=== PATIENT | female | born 1930 | race Two or more races ===

== ENCOUNTER 2020-06-20 11:56 | Inpatient (IN) | payer SELFPAY ==
[~2020-06-20] VITALS: Ht 152.4 cm; Wt 52.9 kg
--- NOTE | 2020-06-20 12:30 | NUR ---
pt rec'd to er via ems c/o abd pain for one day . hx chf,gastric ulcers AWAITING EVALUATION BY ER PROVIDER. n/v given zofran 4 mg ivp
[2020-06-20 12:42] LABS: BASOPHILS % (AUTO) 0.6 % (0.0-2.0); EOSINOPHILS % (AUTO) 0.9 % (0.0-6.0); HEMATOCRIT 34 % (33-45); HEMOGLOBIN 11.8 g/dL (11.5-14.8); LYMPHOCYTES # (AUTO) 0.8 /CMM (0.8-4.8); LYMPHOCYTES % (AUTO) 11.5 % (20.0-44.0); MEAN CORPUSCULAR HGB CONC 35 g/dl (31.0-36.0); MEAN CORPUSCULAR VOLUME 98 fL (82-100); MONOCYTES # (AUTO) 0.4 /CMM (0.1-1.30); MONOCYTES % (AUTO) 6.7 % (2.0-12.0); NEUTROPHILS # (AUTO) 5.3 /CMM (1.8-8.9); NEUTROPHILS % (AUTO) 80.3 % (43.0-81.0); PLATELET COUNT (AUTO) 250 /CMM (150-450); RED BLOOD CELL COUNT(AUTO) 3.44 MIL/uL (4.0-5.2); WHITE BLOOD COUNT (AUTO) 6.6 K/uL (4.3-11.0)
[2020-06-20 12:57] LABS: CALCIUM, SERUM 8.3 mg/dL (8.5-10.1); CARBON DIOXIDE 18 mmol/L (21-32); CHLORIDE 84 mmol/L (98-107); CREATININE 1.1 mg/dL (0.6-1.3); GLUCOSE 136 mg/dL (74-106); POTASSIUM 4.7 mmol/L (3.5-5.1); UREA NITROGEN, BLOOD 23 mg/dL (7-18)
[2020-06-20 13:02] LABS: SODIUM SERUM 116 mmol/L (136-145)
[2020-06-20 13:03] LABS: ALANINE AMINOTRANSFERASE 20 U/L (12-78); ALBUMIN 2.9 g/dL (3.4-5.0); ALKALINE PHOSPHATASE 106 U/L (46-116); ASPARTATE AMINOTRANSFERASE 29 U/L (15-37); BILIRUBIN,DIRECT 0.1 mg/dL (0.0-0.2); BILIRUBIN,TOTAL 0.5 mg/dL (0.2-1.0); LIPASE 215 U/L (73-393); TOTAL PROTEIN, SERUM 6.4 g/dL (6.4-8.2)
[2020-06-20] MEDS ORDERED: ONDANSETRON HCL/PF 4 MG/2 ML VIAL ONE (13:06)
[2020-06-20] MEDS ORDERED: PANTOPRAZOLE 40 MG VIAL ONE (13:26)
[2020-06-20] MEDS ORDERED: PANTOPRAZOLE 40 MG VIAL IV ONE (13:30)
[2020-06-20] MEDS ORDERED: ONDANSETRON HCL/PF - ER 4 MG/2 ML VIAL IV ONE (13:30)
--- NOTE | 2020-06-20 13:38 | NUR ---
pt c/o burning stomache protonix 40 mg ivp given covid 19 test done sent to lab . pt fell asleep
[2020-06-20] MEDS ORDERED: DOXA2TAB2 PO (13:55)
[2020-06-20] MEDS ORDERED: AMLO2.5T2 PO (13:55)
[2020-06-20] MEDS ORDERED: ISOS20TA8 PO (13:55)
[2020-06-20] MEDS ORDERED: METO25TA3 PO (13:55)
[2020-06-20] MEDS ORDERED: Z GUARD REMEDY 2 OZ OINT TP PRN (14:00)
[2020-06-20] MEDS ORDERED: MAGNESIUM HYDROXIDE 30 ML UDC PO PRN (14:00)
[2020-06-20] MEDS ORDERED: MAG HYDROX/AL HYDROX/SIMETH 30 ML UDC PO PRN (14:00)
[2020-06-20] MEDS ORDERED: IV NS 0.9% 500 ML IV ONE (14:00)
[2020-06-20] MEDS ORDERED: PIPERACILLIN /TAZOBACTAM 3.375 G in IV D5W 50 ML IV ONE (14:00)
[2020-06-20] MEDS ORDERED: ZOLPIDEM TARTRATE 5 MG TABLET PO PRN (14:00)
[2020-06-20] MEDS ORDERED: ONDANSETRON HCL/PF 4 MG/2 ML VIAL IVP PRN (14:00)
[2020-06-20] MEDS ORDERED: FLAGYL/NS RTU 500 MG/100 ML PIGGYBACK IV ONE (14:00)
--- NOTE | 2020-06-20 14:15 | NUR ---
COVID NEGATIVE PER LAB
--- NOTE | 2020-06-20 14:25 | NUR ---
GOT BED 110
--- NOTE | 2020-06-20 14:29 | NUR ---
pt given ua sent to lab vss small bm noted and cleaned
--- NOTE | 2020-06-20 14:34 | NUR ---
REPORT GIVEN TO CHARGE NURSE MRAYAN. AWAITING TRANSFER TO FLOOR.
[2020-06-20 14:37] LABS: BILIRUBIN,URINE NEGATIVE (NEGATIVE); COLOR,URINE YELLOW (YELLOW); LEUKOCYTE ESTERASE ,URINE NEGATIVE (NEGATIVE); NITRITE, URINE NEGATIVE (NEGATIVE); PH,URINE 5.5 (5.0-8.0); PROTEIN,URINE 100 mg/dl (NEGATIVE); UGLUCOSE NEGATIVE (NEGATIVE); UROBILINOGEN,URINE 0.2 EU/dL (0.2)
[2020-06-20 14:45] LABS: RBC,URINE 21-50 /HPF (0-2); SQUAMOUS EPITHELIAL CELL,UR 0-2 /HPF (None Seen)
[2020-06-20 14:46] LABS: BACTERIA,URINE 4+ /HPF (None Seen)
[2020-06-20] MEDS ORDERED: hydrALAZINE HCL IV 20 MG VIAL IV PRN (15:00)
--- NOTE | 2020-06-20 15:00 | NUR ---
EMERGENCY SERVICES DIRECTOR NOTES PATIENT ADMITTED FROM ER ON DX OF HYPONATREMIA. PATIENT A/O X3, POLISH SPEAKER. WAS COMPLAINING OF PAIN MID ABDOMINAL REGION PAIN 3/10 PER PAIN SCALE. VS TAKEN BP 149/65, P-90, R-20, T-98.6, O2-98 ROOM AIR. PATIENT TELE , MONITOR ON. TELE MONITOR SHOWS SR. IV ACCESS ON RIGHT AC AREA G#20. SKIN ASSESSMENT DONE INTACT. PATIENT INCONTINENT USING DIAPER. CALL LIGHT WITHIN TO REACH. ADMITTING MD AWARE OF NEW PATIENT AND MEDICATION. WILL MONITORING.
[2020-06-20 15:18] VITALS: BP 149/65
[2020-06-20] MEDS: IV NS 0.9% 1,000 ML IV PRN (15:56)
[2020-06-20] MEDS: ISOSORBIDE DINITRATE (20MG) 20 MG TABLET PO SCH (16:03)
[2020-06-20] MEDS: HYDROCODONE/APAP 5/325MG TABLET PO PRN ×2 (16:04→20:44)
--- NOTE | 2020-06-20 16:04 | NUR ---
RN NOTES ADMINISTER NARCO 5/325 MG PO PRN FOR PAIN 6/10 MID ABDOMEN, AND MAALOX 30 ML FOR STOMACHACHE. ACCORDING TELE RESIDENT SERVICES SUPERVISOR PATIENT HAS ST ELEVATION, QES- 0.14, AND BBB. NOTIFIED. ALSO APPLIED ICE PACK PER PATIENT REQUEST ON LEFT FLANK AREA. GRANDDAUGHTER NEXT TO THE BED.
[2020-06-20] MEDS: AMLODIPINE BESYLATE 2.5 MG TABLET PO SCH (16:21)
--- NOTE | 2020-06-20 18:30 | NUR ---
RN NOTES PATIENT EATING WITH ASSIST OF GRANDDAUGHTER. MEDICATION WERE ADMINISTERED FOR PAIN EFFECTIVE. ASSIST TURN AND REPOSTION Q 2 HR. CALL LIGHT WITHIN TO REACH. ENDORSED ONCOMING NURSE FOLLOW PLAN OF CARE.
--- NOTE | 2020-06-20 19:40 | NUR ---
RN OPENING NOTE RECEIVED PATIENT IN BED RESTING ALERT ORIENTED X3 VERBALLY RESPONSIVE PORTUGUESE SPEAKER ONLY, ON ROOM AIR O2:96% IV SITE IS ON RIGHT AC INTACT PATENT IV HYDRATION NS 0.9% RUNNING 100CC/HR,INCONTINENT TO BOWEL/BLADDER,SAFETY MEASURE IMPLEMENT CALL LIGHT WITHIN REACH,BED IN LOW POSITION AND LOCKED,BED ALARM IS ON CONTINUE TO MONITOR.
[2020-06-20 20:00] VITALS: BP 145/56
[2020-06-21] VITALS (7 sets, daily range): BP systolic 118–144; BP diastolic 54–81
[2020-06-21] MEDS: IV NS 0.9% 1,000 ML IV PRN ×2 (03:08→18:30)
[2020-06-21 05:52] LABS: BASOPHILS % (AUTO) 0.3 % (0.0-2.0); EOSINOPHILS % (AUTO) 2.6 % (0.0-6.0); HEMATOCRIT 32 % (33-45); HEMOGLOBIN 11.1 g/dL (11.5-14.8); LYMPHOCYTES % (AUTO) 15.7 % (20.0-44.0); MEAN CORPUSCULAR HGB CONC 35 g/dl (31.0-36.0); MEAN CORPUSCULAR VOLUME 99 fL (82-100); MONOCYTES # (AUTO) 0.5 /CMM (0.1-1.30); MONOCYTES % (AUTO) 7.7 % (2.0-12.0); NEUTROPHILS # (AUTO) 4.9 /CMM (1.8-8.9); NEUTROPHILS % (AUTO) 73.7 % (43.0-81.0); PLATELET COUNT (AUTO) 231 /CMM (150-450); RED BLOOD CELL COUNT(AUTO) 3.18 MIL/uL (4.0-5.2); WHITE BLOOD COUNT (AUTO) 6.7 K/uL (4.3-11.0)
--- NOTE | 2020-06-21 06:53 | NUR ---
RN CLOSING NOTE PATIENT REMANS ON ALERT ORIENTED X3 VERBALLY RESPONSIVE NO SOB NOT ACUTE DISTRESS NOTED ON ROOM AIR ALL DUE MEDS GIVEN MD ORDERED KEEP CLEAN AND DRY ALL THE TIME,ALL NEEDS MET.ENDORSE NEXT COMING SHIFT FOR CONTINUATION OF CARE
--- NOTE | 2020-06-21 07:20 | NUR ---
RN OPENING NOTE RECEIVED REPORT FRO PM NURSE. PATIENT IN BED RESTING ALERT ORIENTED X3 VERBALLY RESPONSIVE MALTESE SPEAKER ONLY, ON ROOM AIR .NO SOB NO DISTRESS NOTED.FAMILY AT BEDSIDE.ABLE TO TRANSLATE FOR PATIENT NEEDS. IV SITE IS ON RIGHT AC INTACT PATENT IV HYDRATION NS 0.9% RUNNING 100CC/HR.ABLE TO USE BEDSIDE COMMODE.,SAFETY MEASURE IMPLEMENT CALL LIGHT WITHIN REACH,BED IN LOW POSITION AND LOCKED,BED ALARM IS ON .WILL CONTINUE TO MONITOR.
[2020-06-21 07:29] LABS: CALCIUM, SERUM 7.4 mg/dL (8.5-10.1); CREATININE 1.1 mg/dL (0.6-1.3); MAGNESIUM 1.5 mg/dL (1.8-2.4); PHOSPHORUS 2.9 mg/dL (2.5-4.9); POTASSIUM 4.5 mmol/L (3.5-5.1)
[2020-06-21] MEDS ORDERED: LEVOFLOXACIN 500 MG /D5W 100ML 500 MG in PREMIX 1 EA IV SCH (08:00)
[2020-06-21] MEDS: LEVOFLOXACIN 750 MG /D5W 150ML 750 MG in PREMIX 1 EA IV SCH (09:57)
[2020-06-21] MEDS: ISOSORBIDE DINITRATE (20MG) 20 MG TABLET PO SCH ×2 (09:58→17:34)
[2020-06-21] MEDS: METOPROLOL SUCCINATE 25 MG TAB.SR.24H PO SCH (09:59)
[2020-06-21] MEDS: DOXAZOSIN MESYLATE (4 MG) 4 MG TABLET PO SCH (10:00)
[2020-06-21] MEDS: AMLODIPINE BESYLATE 2.5 MG TABLET PO SCH ×2 (10:00→17:34)
--- NOTE | 2020-06-21 11:00 | NUR ---
DYE TANK TENDER NOTE SEEN BY ,UPDATED ABPUT PATIENT CONDITION WITH LABS AND FAMILY REQUEST TO DO [facility] LAB AND PATIENT C/O PAIN IN THE RIGHT EYE WITH MILD DISCHARGE AND REDNESS.SWELLING AROUND.AWAITING ORDERS.OK TO GIVE OMEPRAZOLE PER PATIENT REQUEST.WILL CONTINUE TO MONITOR.
[2020-06-21] MEDS: PANTOPRAZOLE 40 MG TABLET.DR PO SCH (12:25)
[2020-06-21] MEDS: Magnesium 1GM/D5W 100ML PREMIX 100 ML IV SCH ×2 (12:25→13:26)
[2020-06-21] MEDS: HYDROCODONE/APAP 5/325MG TABLET PO PRN ×2 (14:06→19:56)
[2020-06-21] MEDS: NEO/POLY-B/DEXAM OPHTH SUSP 5 ML BOTTLE EACHEYE SCH ×3 (14:06→21:36)
--- NOTE | 2020-06-21 18:37 | NUR ---
RN CLOSING NOTE PATIENT IN BED RESTING ALERT ORIENTED X3 VERBALLY RESPONSIVE HEBREW SPEAKER ONLY, ON ROOM AIR .NO SOB NO DISTRESS NOTED.FAMILY AT BEDSIDE.ABLE TO TRANSLATE FOR PATIENT NEEDS. IV SITE IS ON RIGHT WRIST INTACT PATENT IV HYDRATION NS 0.9% RUNNING 100CC/HR.ABLE TO USE BEDSIDE COMMODE.,SAFETY MEASURE IMPLEMENT CALL LIGHT WITHIN REACH,BED IN LOW POSITION AND LOCKED,BED ALARM IS ON .WILL ENDORSE TO PM NURSE FOR OTILIA.
[2020-06-21] MEDS ORDERED: PANTOPRAZOLE 40 MG TABLET.DR PO ONE (20:00)
--- NOTE | 2020-06-21 21:52 | NUR ---
TELE-1/INDUSTRIAL TECH INSTRUCTOR I SPOKE AT LENGTH WITH THE PTS FAMILY REGARDING PTS CONDITION AND PLAN OF CARE. PTS FAMILY IS REQUESTING AN ORTHOPEDIC CONSULTATION FOR THE PTS UNRESOLVED BACK PAIN. WILL ENDORSE TO AM SHIFT TO HAVE ATTEND PHYSICIAN SPEAK WITH FAMILY REGARDING THIS ISSUE. WILL CONTINUE TO MONITOR PT.
[2020-06-22] VITALS (7 sets, daily range): BP systolic 108–153; BP diastolic 40–68
[2020-06-22] MEDS: NEO/POLY-B/DEXAM OPHTH SUSP 5 ML BOTTLE EACHEYE SCH ×6 (01:07→20:48)
--- NOTE | 2020-06-22 03:20 | NUR ---
RN NOTES, RECEIVED PATIENT FROM HENRIQUE MYERS FOR CONTINUATION OF CARE, PATIENT SLEEPING AT THIS TIME NO DISTRESS NOTED.
[2020-06-22 06:34] LABS: CALCIUM, SERUM 7.6 mg/dL (8.5-10.1); CREATININE 1.2 mg/dL (0.6-1.3); MAGNESIUM 2.2 mg/dL (1.8-2.4); PHOSPHORUS 2.8 mg/dL (2.5-4.9); POTASSIUM 4.6 mmol/L (3.5-5.1)
[2020-06-22] MEDS: IV NS 0.9% 1,000 ML IV PRN ×2 (06:47→17:40)
--- NOTE | 2020-06-22 07:26 | NUR ---
RN NOTES, ENDORSED PATIENT TO SIERRA ARROYO FOR CONTINUATION OF CARE, PATIENT IN STABLE CONDITION.
[2020-06-22 07:29] LABS: THYROID STIMULATING HORMONE 4.554 uIU/mL (0.358-3.74); URIC ACID 3.7 mg/dL (2.6-7.2)
--- NOTE | 2020-06-22 07:49 | NUR ---
RN NOTES OPENING RECEIVED PATIENT SLEEPING AT THIS TIME, NO SOB NOTED, NO DISTRESS NOTE, AT THI TIME DID NOT DISTURB TO ALLOW PATIENT TO GET REST, IV INTACT PATENT , SAFETY PRECAUTIONS IN PLACE, CALL LIGHT IN REACH.
[2020-06-22] MEDS: ISOSORBIDE DINITRATE (20MG) 20 MG TABLET PO SCH ×2 (08:07→16:32)
[2020-06-22] MEDS: DOXAZOSIN MESYLATE (4 MG) 4 MG TABLET PO SCH (08:08)
[2020-06-22] MEDS: PANTOPRAZOLE 40 MG TABLET.DR PO SCH (08:09)
--- NOTE | 2020-06-22 08:49 | NUR ---
GROUND PRODUCTS DIRECTOR NOTE ASSISTED TO BSC ,ABLE TO URINATE WELL , PER DR DOSHI PT EVAL , ORDER CARRIED
[2020-06-22] MEDS: METOPROLOL SUCCINATE 25 MG TAB.SR.24H PO SCH (09:00)
[2020-06-22] MEDS: AMLODIPINE BESYLATE 2.5 MG TABLET PO SCH ×2 (09:00→16:32)
--- NOTE | 2020-06-22 09:51 | NUR ---
RN NOTES TELE PER MD DOSHI ORDER TO START REGULAR DIET
[2020-06-22] MEDS: ACETAMINOPHEN 325 MG TABLET PO PRN (10:38)
--- NOTE | 2020-06-22 10:39 | NUR ---
RN NOTES PATIENT C/O BACK PAIN GIVEN PRN TYLENOL 650 MG TO HELP RELIEVE PAIN WILL EVALUATE IF EFFECTIVE IN 15 MINUTES.
--- NOTE | 2020-06-22 11:37 | NUR ---
EMPLOYEE BENEFITS COORDINATOR NOTE PT AT BEDSIDE ,PATIENT ABLE TO AMBULATE WITH PT USING A WALKER
--- NOTE | 2020-06-22 14:39 | NUR ---
CHISEL WORKER NOTE REKHA ARROYO ADMINISTRATIVE SERVICES ASSISTANT AT BEDSIDE AWARE THAT NA 126 WITH ORDER FLUIDS RESTRICTION , ORDER CARRIED OUT
--- NOTE | 2020-06-22 18:35 | NUR ---
RN NOTES NEW ORDER ON FLUID RESTRICTION OF 800ML PER DAY TO HELP BALANCE OUT SODIUM LEVELS BEING TOO LOW, PATIENT COMPLIANT AND GOT LANGUAGE TRANSLATED TO AZERI TO ENSURE CLEAR UNDERSTANDING, SON PRESENT AND HELPING TO FEED PATIENT, COMPLIANT WITH ALL CARE AND COOPERATIVE, INTAKE OF 400ML COMPLETED , REPOSITIONED FOR COMFORT,BED LOW TO FLOOR SAFETY MEASURES IN PLACE, CALL LIGHT IN REACH AND ABLE TO USE AND MAKE NEEDS KNOWN, WILL CONTINUE TO MONITOR.
[2020-06-23] VITALS: BP 140/56
[2020-06-23] MEDS: NEO/POLY-B/DEXAM OPHTH SUSP 5 ML BOTTLE EACHEYE SCH ×6 (00:55→20:43)
[2020-06-23] MEDS: ACETAMINOPHEN 325 MG TABLET PO PRN (00:55)
[2020-06-23 04:00] VITALS: BP 163/66
[2020-06-23] MEDS: IV NS 0.9% 1,000 ML IV PRN (06:05)
--- NOTE | 2020-06-23 06:24 | NUR ---
RN NOTES, patient c/o chest pain 10/15, doesn't radiate to another part of body, no diaphoresis noted, VS 173/66, 110, 100%, 22.
--- NOTE | 2020-06-23 06:26 | NUR ---
RN NOTES, INFORMED GIULIA SCHMID UNION LABORER PLANT CONTROL OPERATOR THAT PATIENT C/O CHEST PAIN WITH ORDERS FOR EKG STAT, AND HE REPLIED THAT HE WILL PUT ORDERS FOR PATIENT.
[2020-06-23] MEDS ORDERED: ASPIRIN 81 MG TAB.CHEW PO ONE ×2 (06:30→07:00)
[2020-06-23 06:38] LABS: BASOPHILS % (AUTO) 0.9 % (0.0-2.0); EOSINOPHILS % (AUTO) 3.5 % (0.0-6.0); HEMATOCRIT 29 % (33-45); LYMPHOCYTES # (AUTO) 0.9 /CMM (0.8-4.8); LYMPHOCYTES % (AUTO) 16.9 % (20.0-44.0); MEAN CORPUSCULAR HGB CONC 35 g/dl (31.0-36.0); MEAN CORPUSCULAR VOLUME 101 fL (82-100); MONOCYTES # (AUTO) 0.4 /CMM (0.1-1.30); MONOCYTES % (AUTO) 7.8 % (2.0-12.0); NEUTROPHILS # (AUTO) 3.8 /CMM (1.8-8.9); NEUTROPHILS % (AUTO) 70.9 % (43.0-81.0); PLATELET COUNT (AUTO) 201 /CMM (150-450); RED BLOOD CELL COUNT(AUTO) 2.82 MIL/uL (4.0-5.2); WHITE BLOOD COUNT (AUTO) 5.4 K/uL (4.3-11.0)
[2020-06-23] MEDS: NITROGLYCERIN 0.4 MG/TAB BOTTLE SL PRN ×2 (06:48→09:06)
--- NOTE | 2020-06-23 06:53 | NUR ---
RN NOTES, AFTER ADMINISTRATION OF ONE NITRO TAB VIA SL BP 139/56, 92, PATIENT STATES THAT PAIN IS RELIVED, ASPIRIN ADMINISTERED ORDERED, ON 2LPM VIA NC WITH O2 100%, CXR RESULTS, STILL PENDING, WILL CONTINUE TO MONITOR CLOSELY.
[2020-06-23 06:54] LABS: CALCIUM, SERUM 7.7 mg/dL (8.5-10.1); CREATININE 1.2 mg/dL (0.6-1.3); MAGNESIUM 2.1 mg/dL (1.8-2.4); POTASSIUM 4.5 mmol/L (3.5-5.1)
--- NOTE | 2020-06-23 07:28 | NUR ---
RN NOTES, ENDORSED PATIENT TO MARPREET RN FOR CONTINUATION OF CARE, DENIES CHEST PAIN.
--- NOTE | 2020-06-23 07:30 | NUR ---
RN OPENING NOTES Patient received in bed resting. No c/o chest pain upon endrosement. Patient is breathing even and unlabored. On room air with 02 sat of 98%. Patient noted with right wrist with 20 gauze, saline lock. Patient will be closely monitored. Call light with in reach.
--- NOTE | 2020-06-23 07:39 | NUR ---
RN NOTES, TROPONIN RESULTS STILL PENDING, ENDORSED TO AMBIKA ARROYO.
[2020-06-23] MEDS: PANTOPRAZOLE 40 MG TABLET.DR PO SCH ×2 (08:15→16:39)
--- NOTE | 2020-06-23 08:44 | NUR ---
dr. kraus notified with patient troponin level.no new orders.
--- NOTE | 2020-06-23 09:06 | NUR ---
Patient c/o chest pain and was given nitro under the tongue. bp OF 162/76 AND PULSE OF 115. 02 SAT OF 98%.
[2020-06-23] MEDS: hydrALAZINE HCL 50 MG TABLET PO SCH ×3 (09:12→16:39)
[2020-06-23] MEDS: ISOSORBIDE DINITRATE (20MG) 20 MG TABLET PO SCH ×2 (09:12→16:39)
[2020-06-23] MEDS: AMLODIPINE BESYLATE 2.5 MG TABLET PO SCH ×2 (09:13→16:39)
[2020-06-23] MEDS: DOXAZOSIN MESYLATE (4 MG) 4 MG TABLET PO SCH (09:13)
[2020-06-23] MEDS: METOPROLOL SUCCINATE 25 MG TAB.SR.24H PO SCH (09:14)
--- NOTE | 2020-06-23 09:15 | NUR ---
Patient rechecke 5 minutes after one dose of nitro and stated she is not in pain. BP OF 116/72 Pulse of 105. Granddaughter at bedside.Patient given her am medications
--- NOTE | 2020-06-23 09:32 | NUR ---
Patient resting well and in stable condition and did not show any s/s of distress.
[2020-06-23] MEDS: LEVOFLOXACIN 750 MG /D5W 150ML 750 MG in PREMIX 1 EA IV SCH (09:33)
[2020-06-23 12:00] VITALS: BP 121/49
[2020-06-23 16:00] VITALS: BP 136/55
--- NOTE | 2020-06-23 19:09 | NUR ---
RN CLOSING NOTES Patient currently in bed resting. Patient is breathing even and unlabored. On room air with 02 sat of 99%. Patient noted with right wrist with 20 gauze, saline lock. No c/o chest pain or any discomfort. Patient on tele box, SR. Call light with in reach.Will endorse to next shift for OTILIA.
--- NOTE | 2020-06-23 19:30 | NUR ---
RN OPENING NOTE RECD PT IN BED, A/O X2 MALDIVIAN SPEAKING. SEWER CONNECTOR UTILIZED. PT ON ROOM AIR TOLERATING WELL. NO RESP DISTRESS OR SOB NOTED. O2 SATURATION 94% AT THIS TIME. FAMILY AT BEDSIDE. PT ON TELE MONITORING PRESENTS WITH NSR OF 89 AT THIS TIME. PT C/O OF MINIMAL PAIN ON HER STOMACH, PT REQUESTS NEW ICE PACK AT THIS TIME. ORAL CARE DONE. SAFETY MEASURES IN PLACE. HOB ELEVATED. SIDE RAILS UP X2 BED LOCKED IN LOWEST POSITION. BED ALARM ON. CALL LIGHT WITHIN REACH. WILL CONT TO MONITOR.
[2020-06-23 20:00] VITALS: BP 140/65
[2020-06-24] VITALS: BP 144/50
[2020-06-24] MEDS: ACETAMINOPHEN 325 MG TABLET PO PRN (00:15)
--- NOTE | 2020-06-24 00:15 | NUR ---
RN NOTE PT C/O LOWER BACK PAIN, TYLENOL GIVEN PRN ORDERED. WILL CONT TO MONITOR.
[2020-06-24] MEDS: NEO/POLY-B/DEXAM OPHTH SUSP 5 ML BOTTLE EACHEYE SCH ×4 (01:07→13:05)
--- NOTE | 2020-06-24 02:54 | NUR ---
RN NOTE PT RESTING IN BED. C/O OF STOMACH PAIN, REQUESTS NEW ICE PACKS. NEEDS ATTENDED AT THIS TIME
[2020-06-24 04:00] VITALS: BP 144/50
[2020-06-24 06:32] LABS: BASOPHILS # (AUTO) 0.1 /CMM (0.0-0.2); BASOPHILS % (AUTO) 0.8 % (0.0-2.0); HEMATOCRIT 29 % (33-45); HEMOGLOBIN 9.7 g/dL (11.5-14.8); LYMPHOCYTES # (AUTO) 0.9 /CMM (0.8-4.8); MEAN CORPUSCULAR HGB CONC 34 g/dl (31.0-36.0); MEAN CORPUSCULAR VOLUME 101 fL (82-100); MONOCYTES # (AUTO) 0.6 /CMM (0.1-1.30); MONOCYTES % (AUTO) 8.1 % (2.0-12.0); NEUTROPHILS # (AUTO) 5.6 /CMM (1.8-8.9); NEUTROPHILS % (AUTO) 76.1 % (43.0-81.0); PLATELET COUNT (AUTO) 202 /CMM (150-450); RED BLOOD CELL COUNT(AUTO) 2.83 MIL/uL (4.0-5.2); WHITE BLOOD COUNT (AUTO) 7.3 K/uL (4.3-11.0)
[2020-06-24 06:48] LABS: ALBUMIN 2.5 g/dL (3.4-5.0); BILIRUBIN,TOTAL 0.3 mg/dL (0.2-1.0); CALCIUM, SERUM 8.5 mg/dL (8.5-10.1); CREATININE 1.3 mg/dL (0.6-1.3); MAGNESIUM 1.9 mg/dL (1.8-2.4); POTASSIUM 4.8 mmol/L (3.5-5.1); TOTAL PROTEIN, SERUM 5.3 g/dL (6.4-8.2)
--- NOTE | 2020-06-24 07:15 | NUR ---
RN CLOSING NOTE NO SIGNIFICANT CHANGE IN PT CONDITION. STILL ON ROOM AIR. ALL NEEDS ATTENDED. SAFETY MEASURES IN PLACE. HOB ELEVATED. SIDE RAILS UP BED LOCKED IN LOWEST POSITION CALL LIGHT WITHIN REACH. ENDORSED TO DAY SHIFT FOR CONTINUATION OF CARE
--- NOTE | 2020-06-24 07:30 | NUR ---
RN OPENING NOTE URDU SPEAKING PT, A/Ox2, LYING IN BED SEMIFOLWERS BREATHING RA SPO2 97%, NO SIGN OF RESP DISTRESS OR SOB, BREATHING EVEN AND UNLABORED. PT SKIN IS INTACT. PT RT WRIST # 20 SL, FLUSHED, INTACT AND PATENT, NO SIGN OF INFECTION/INFILTRATION. PT DENIES PAIN. PT 1 ASSIST [address] BEDSIDE [address]. [address] DOSHI SPOKE TO SON AND DAUGHTER REGARDING PT STATUS, ALL QUESTIONS ANSWERED TO THEIR LIKING. ALL PT SAFETY PRECAUTIONS IN PLACE, SON IS AT BEDSIDE. WILL CONT TO MONITOR
[2020-06-24 08:00] VITALS: BP 153/56
--- NOTE | 2020-06-24 08:00 | NUR ---
RN NOTE DR DOSHI NOTIFIED OF TROP I LEVEL 0.081
[2020-06-24] MEDS: ISOSORBIDE DINITRATE (20MG) 20 MG TABLET PO SCH (09:12)
[2020-06-24] MEDS: METOPROLOL SUCCINATE 25 MG TAB.SR.24H PO SCH (09:12)
[2020-06-24] MEDS: PANTOPRAZOLE 40 MG TABLET.DR PO SCH (09:12)
[2020-06-24 09:13] VITALS: BP 153/56
[2020-06-24] MEDS: AMLODIPINE BESYLATE 2.5 MG TABLET PO SCH (09:13)
[2020-06-24] MEDS: hydrALAZINE HCL 50 MG TABLET PO SCH (09:13)
[2020-06-24] MEDS: DOXAZOSIN MESYLATE (4 MG) 4 MG TABLET PO SCH (09:13)
[2020-06-24] MEDS ORDERED: LEVO500T90 PO (09:48)
--- NOTE | 2020-06-24 13:15 | NUR ---
RN NOTE PT DISCHARGED IN STABLE CONDITION WITH SON
== END 2020-06-24 13:14 | disposition home or self-care (01) | DRG 391 ==
LOC: ER 12:06 → TELE1 14:43
PROVIDERS: ADMIT Internal Medicine; ATTEND Internal Medicine
DX: K57.32 Diverticulitis of large intestine without perforation or abscess without bleeding (principal); E43 Unspecified severe protein-calorie malnutrition; N17.0 Acute kidney failure with tubular necrosis; I21.4 Non-ST elevation (NSTEMI) myocardial infarction; E22.2 Syndrome of inappropriate secretion of antidiuretic hormone; I13.0 Hypertensive heart and chronic kidney disease with heart failure and stage 1 through stage 4 chronic kidney disease, or unspecified chronic kidney disease; I50.22 Chronic systolic (congestive) heart failure; R10.9 Unspecified abdominal pain; F41.9 Anxiety disorder, unspecified; D64.9 Anemia, unspecified; E83.42 Hypomagnesemia; E86.1 Hypovolemia; H10.9 Unspecified conjunctivitis; N18.9 Chronic kidney disease, unspecified; K21.9 Gastro-esophageal reflux disease without esophagitis; I25.10 Atherosclerotic heart disease of native coronary artery without angina pectoris; Z87.11 Personal history of peptic ulcer disease; Z20.822 Contact with and (suspected) exposure to COVID-19; E88.09 Other disorders of plasma-protein metabolism, not elsewhere classified; Z68.22 Body mass index [BMI] 22.0-22.9, adult; R94.31 Abnormal electrocardiogram [ECG] [EKG]; I99.9 Unspecified disorder of circulatory system
CPT/HCPCS: 36415; 71045-TC; 76770-TC; 80048-TC; 80053-TC; 80076-TC; 81001; 82962-TC; 83605-TC; 83690-TC; 83735-TC; 83880; 84100-TC; 84295-TC; 84443-TC; 84484-TC; 84550-TC; 85025-TC; 87081-TC; 87086-TC; 93307-TC; 97112-TC; 97116-TC; 97530-TC; A4216; C9113; C9803; G0378; J0360; J1956; J2405; J2543; J3475; J7030; J7060